=== PATIENT | female | born 1990 | race Caucasian/White ===

== ENCOUNTER 2024-09-01 13:12 | Emergency (ER) | payer OTHER, SELFPAY ==
[2024-09-01 13:31] VITALS: BP 145/78
--- NOTE | 2024-09-01 15:39 | ED.GENMED ---
History of Present Illness
General
Chief Complaint: Musculo-Skeletal Complaint
Source: patient
Exam Limitations: none
Time Seen by Provider: 09/01/24 15:00
Nursing documentation reviewed up to this point in time: agreed with
History of Present Illness
History of Present Illness:
34 y/o F with h/o anxiety
just had a vein procedure yesterday, already had bruising to her knee area from where the vein procedure was
was wearing compression sock
walking in soccer field and didn't see a hole in the ground, stepped down and then fell forward onto her knee
and hasn't been able to walk well, due to severe pain in the lower leg/knee region
no numbness/tingling/weakness in the foot/lower extremity
nothing taken for pain
Past History
Past History
ED Past Medical History: Psychiatric
Social History
Tobacco: Non-smoker
Review of Systems
Review of Systems
Allergies reviewed?: Yes
All Other Systems: Not applicable
Phy Exam
Physical Exam
Physical Exam:
GENERAL: Alert , in no apparent distress, comfortable at rest
HEAD: NCAT
CV: 2+ DP PULSES B/L
NEUROLOGICAL: Alert and oriented, no focal neuro deficits, , 5/5 strength, sensation intact, ambulation slight limp right leg
SKIN: Warm and dry, bruising to anterior thigh and knee, redness where vein surgery was anterior l knee
prox tibial region trace ecchymosis and STS
MUSCULOSKELETAL: mod L knee swelling, able to flex 30 degrees, no laxity
tenderness prox tibialr egion
calf compartment soft
PSYCH: Normal and appropriate interaction.
Course
Orders/Labs/Results
Orders:
Orders
09/01/24 13:35
Knee, Left 4 or More Views [CR Knee - Left 4 Or More View*] Urgent
Comment:
Reason For Exam: injury
09/01/24 13:37
Tib/Fib, Left 2 View [CR Leg Tibia/fibula Left 2 Vw] Urgent
Comment:
Reason For Exam: fall
09/01/24 15:40
Ibuprofen [Motrin] 800 mg PO NOW STA
09/01/24 15:49
CT Lower Ext W/o Iv Cont Lt Urgent
Comment:
Reason For Exam: tibial plateau fx
Vital Signs
Initial and Last Documented VS:
Initial Vital Signs
Temp Pulse Resp BP Pulse Ox
98 F 86 16 145/78 98
09/01/24 13:31 09/01/24 13:31 09/01/24 13:31 09/01/24 13:31 09/01/24 13:31
Last Documented Vital Signs
Temp Pulse Resp BP Pulse Ox
98 F 86 16 145/78 98
09/01/24 13:31 09/01/24 13:31 09/01/24 13:31 09/01/24 13:31 09/01/24 13:31
MDM/Problems Addressed
Differential Diagnosis Includes:
tibial plateau fracture, knee sprain,ecchymosis
MDM/Problems Addressed:
34 y/o F
vein procedure on L leg yesterday (knee region)
here after mechanical fall into a hole first and then forward onto lower leg
pain/swelling/bruising anterior tibial region
pt has tibial plateau fx sesn on xray indep reviewed by me
d/w dr. josué drake
requests CT imaging
d/c home [facility]
*Critical Care Note
Total Time (30-74mins, 75-104mins- exclusive of procedures): Not Applicable
ED Attending Note
-
Portions of this chart may have been created with voice recognition software.� Occasional wrong word or��sound alike� substitutions may have occurred due to the inherent limitations of voice recognition software.
Discharge Plan
Departure
Patient Disposition: Home (Routine Discharge)
Date of Disposition: 09/01/24
Time of Disposition: 16:46
Patient with high blood pressure during this ER visit?: No
Condition: Fair
Covid-19: Not Applicable
Discharge Problem:
Fracture of left tibial plateau
Instructions: Lower leg fracture, How to Use Crutches
Referrals:
Paramjit Keith MD [Active] - Follow up in 5-7 days (ortho)
Yoan Iverson DO [Family Provider] -
Activity Restrictions/Additional Instructions:
YOU HAVE A TIBIAL PLATEAU FRACTURE
ELEVATE YOUR LEG
DO NOT PUT WEIGHT ON YOUR FOOT
USE THE CRUTCHES TO GET AROUND
FOLLOW UP WITH ORTHOPEDICS NEXT WEEK, CALL TUESDAY AND TELL THEM ABOUT YOUR FRACUTRE AND THAT YOU WERE SEEN IN THE ER
TAKE MOTRIN 800 MG EVERY 8 HOURS WITH FOOD FOR 3-5 DAYS
TYLENOL EVERY 6 HORUS NEEDED
ICE OFF AND ON
RETURN FOR ANY COCNERNS.
Interventions
Interventions:
*Risk Screen - Suicide Last Done: 09/01/24 13:31
*General Assessment Last Done: 09/01/24 13:31
*Neglect/Abuse Screening Last Done: 09/01/24 13:31
Discharge Date and Time
Print Language: SWEDISH
[2024-09-01] MEDS: MOTRIN 800 MG PO (15:54)
[2024-09-01 17:45] VITALS: BP 145/79
== END 2024-09-01 17:45 | disposition home or self-care (01) ==
LOC: EMR 13:12
PROVIDERS: EMERGENCY PHYSICIAN Emergency Medicine; FAMILY PHYSICIAN Family Medicine
DX: S82.142A Displaced bicondylar fracture of left tibia, initial encounter for closed fracture (principal); S80.12XA Contusion of left lower leg, initial encounter; W19.XXXA Unspecified fall, initial encounter
CPT/HCPCS: 99284; 73564; 73590; 73700